=== PATIENT | female | born 1995 | race Caucasian/White ===

== ENCOUNTER 2024-10-25 04:38 | Emergency (ER) | payer OTHER | END 2024-10-25 05:33 | disposition left against medical advice (07) | LOC: ER 04:44 | DX: R51.9 Headache, unspecified (principal); Z53.21 Procedure and treatment not carried out due to patient leaving prior to being seen by health care provider ==

== ENCOUNTER 2024-11-08 02:14 | Emergency (ER) | payer OTHER ==
[~2024-11-08] VITALS: Ht 167.6 cm; Wt 99.8 kg
[2024-11-08] MEDS ORDERED: CLIN300C12 PO (03:01)
[2024-11-08] MEDS ORDERED: MUPI15CR TP (03:01)
[2024-11-08] MEDS ORDERED: HYDR20CR3 TOP (03:01)
[2024-11-08 03:13] VITALS: BP 134/90; O2SAT 98
== END 2024-11-08 03:14 | disposition home or self-care (01) ==
LOC: ER 02:16
DX: R23.8 Other skin changes (principal); L23.9 Allergic contact dermatitis, unspecified cause; L01.00 Impetigo, unspecified; F17.290 Nicotine dependence, other tobacco product, uncomplicated; Z59.00 Homelessness unspecified; Z88.0 Allergy status to penicillin
CPT/HCPCS: A4606; A4663